=== PATIENT | female | born 1965 | race Caucasian/White ===

== ENCOUNTER → 2022-12-14 09:47 | Outpatient (BNVA) | payer OTHER, SELFPAY | PROVIDERS: Visit Provider Specialist | DX: S82.092A Other fracture of left patella, initial encounter for closed fracture (principal); W18.09XA Striking against other object with subsequent fall, initial encounter | CPT/HCPCS: 73562 ==

== ENCOUNTER 2022-12-14 14:40 | Outpatient (CLI) | payer OTHER, SELFPAY | END 2022-12-14 14:41 | disposition home or self-care (01) | LOC: SPT 14:43 | PROVIDERS: Visit Provider Specialist | DX: Z46.89 Encounter for fitting and adjustment of other specified devices (principal); S82.092D Other fracture of left patella, subsequent encounter for closed fracture with routine healing; X58.XXXD Exposure to other specified factors, subsequent encounter; S82.092A Other fracture of left patella, initial encounter for closed fracture; W18.09XA Striking against other object with subsequent fall, initial encounter | CPT/HCPCS: 27520; 97760; 99203; L1832 ==

== ENCOUNTER → 2023-01-01 10:25 | Outpatient (BNVA) | payer OTHER, SELFPAY | PROVIDERS: Visit Provider Specialist | DX: S82.002D Unspecified fracture of left patella, subsequent encounter for closed fracture with routine healing (principal); W10.2XXD Fall (on)(from) incline, subsequent encounter | CPT/HCPCS: 73562; 99024 ==

== ENCOUNTER → 2023-02-05 10:29 | Outpatient (BNVA) | payer OTHER, SELFPAY | PROVIDERS: Visit Provider Specialist | DX: S82.035D Nondisplaced transverse fracture of left patella, subsequent encounter for closed fracture with routine healing (principal); W18.09XD Striking against other object with subsequent fall, subsequent encounter | CPT/HCPCS: 73562 ==

== ENCOUNTER 2023-02-05 15:28 | Outpatient (CLI) | payer OTHER, SELFPAY | END 2023-02-05 15:29 | disposition home or self-care (01) | LOC: SPT 15:28 | PROVIDERS: Visit Provider Specialist | DX: Z46.89 Encounter for fitting and adjustment of other specified devices (principal); S82.002D Unspecified fracture of left patella, subsequent encounter for closed fracture with routine healing; X58.XXXD Exposure to other specified factors, subsequent encounter | CPT/HCPCS: 97760; 99024; L1812 ==

== ENCOUNTER → 2023-02-06 13:44 | Outpatient (BNVA) | payer OTHER, SELFPAY | PROVIDERS: Visit Provider Podiatrist Foot & Ankle Surgery | DX: M77.42 Metatarsalgia, left foot (principal); M77.41 Metatarsalgia, right foot; M21.6X1 Other acquired deformities of right foot; M21.6X2 Other acquired deformities of left foot; M20.12 Hallux valgus (acquired), left foot; M20.11 Hallux valgus (acquired), right foot | CPT/HCPCS: 73630; 99203 ==

== ENCOUNTER → 2023-10-18 09:44 | Outpatient (BNVA) | payer OTHER, SELFPAY | PROVIDERS: Visit Provider Podiatrist Foot & Ankle Surgery | DX: M21.6X1 Other acquired deformities of right foot; M21.6X2 Other acquired deformities of left foot; M20.12 Hallux valgus (acquired), left foot; M20.11 Hallux valgus (acquired), right foot; M77.41 Metatarsalgia, right foot; M77.42 Metatarsalgia, left foot | CPT/HCPCS: 99213 ==